=== PATIENT | female | born 1990 | race Caucasian/White ===

== ENCOUNTER 2016-11-15 07:10 | Inpatient (IN) | payer MEDICAID ==
[2016-11-09 12:31] LABS: ABSOLUTE BASOPHILS # (AUTO) 0.1 10^3/uL (0.0-0.2); ABSOLUTE EOSINOPHILS # (AUTO) 0.1 10^3/uL (0.0-0.6); ABSOLUTE LYMPHOCYTES (AUTO) 1.9 10^3/uL (0.5-4.7); ABSOLUTE MONOCYTES (AUTO) 0.6 10^3/uL (0.1-1.4); ABSOLUTE NEUT (AUTO) 6.5 10^3/uL (1.7-8.2); BASOPHILS % (AUTO) 0.6 % (0-2); EOSINOPHILS % (AUTO) 1.2 % (0-6); HEMATOCRIT 40.1 % (36.0-47.0); HEMOGLOBIN 13.1 g/dL (12.0-15.5); HGB HCT DIFFERENCE -0.8; LYMPHOCYTES % (AUTO) 20.3 % (13-45); MEAN CORPUSCULAR HEMOGLOBIN 30.2 pg (27.0-33.4); MEAN CORPUSCULAR HGB CONC 32.8 g/dL (32.0-36.0); MEAN CORPUSCULAR VOLUME 92 fl (80-97); MONOCYTES % (AUTO) 6.4 % (3-13); RED BLOOD COUNT 4.34 10^6/uL (3.72-5.28); RED CELL DISTRIBUTION WIDTH 12.9 % (11.5-14.0); SEGMENTED NEUTROPHILS % (AUTO) 71.5 % (42-78); WHITE BLOOD COUNT 9.1 10^3/uL (4.0-10.5)
[2016-11-09 12:39] LABS: AMORPHOUS SEDIMENT,URINE TRACE /HPF; APPEARANCE,URINE CLOUDY; BILIRUBIN,URINE NEGATIVE (NEGATIVE); GLUCOSE, URINE NEGATIVE (NEGATIVE); KETONES,URINE NEGATIVE (NEGATIVE); LEUKOCYTE ESTERASE,URINE NEGATIVE (NEGATIVE); NITRITE,URINE NEGATIVE (NEGATIVE); PROTEIN,URINE NEGATIVE (NEGATIVE); URINE SPECIFIC GRAVITY 1.012; UROBILINOGEN,URINE NEGATIVE mg/dL (<2.0)
[2016-11-09 12:50] LABS: URINE BARBITURATES SCREEN NEGATIVE; URINE METHADONE SCREEN NEGATIVE; URINE OPIATES LOW NEGATIVE; URINE PHENCYCLIDINE SCREEN NEGATIVE
[~2016-11-15 07:10] MED LIST: RINGERS SOLUTION,LACTATED 1,000 ML IV PRN
[2016-11-15] MEDS ORDERED: OXYTOCIN/NORMAL SALINE 20 UNIT/1,000 ML RTUINJ ONE ×2 (09:11→11:46)
[2016-11-15] MEDS ORDERED: FENTANYL CITRATE INJ/PF 100 MCG/2 ML AMPUL ONE (09:11)
[2016-11-15] MEDS ORDERED: MIDAZOLAM 2 MG/2 ML INJ ONE (09:11)
[2016-11-15] MEDS ORDERED: OXYTOCIN 10 UNIT/ML VIAL ONE (09:11)
[2016-11-15] MEDS ORDERED: ACETAMINOPHEN 100 ML IV ONE (09:12)
[2016-11-15] MEDS: CEFAZOLIN 2 GM/D5W RTU 2 GM/50 ML RTUPB IV SCH ×2 (09:15→09:30)
[2016-11-15] MEDS ORDERED: MORPHINE SULFATE 10 MG/ML INJ IV PRN (09:48)
[2016-11-15] MEDS ORDERED: DIPHENHYDRAMINE HCL 50 MG/ML VIAL IV PRN (09:48)
[2016-11-15] MEDS ORDERED: FENTANYL CITRATE INJ/PF 100 MCG/2 ML AMPUL IV PRN ×3 (09:48)
[2016-11-15] MEDS ORDERED: PROMETHAZINE HCL INJ 25 MG/1 ML VIAL IV PRN ×3 (09:48→10:33)
[2016-11-15] MEDS ORDERED: MEPERIDINE HCL/PF INJ 25 MG/1 ML DISP.SYRIN IV PRN (09:48)
[2016-11-15] MEDS ORDERED: OXYCODONE-ACETAMINOPHEN 5-325 MG TABLET PO PRN ×3 (09:48→10:33)
[2016-11-15] MEDS ORDERED: DIPH/PERTUSS(ACELL)/TETANUS VAC/PF 0.5 ML SYR (>=10YO) IM PRN (10:33)
[2016-11-15] MEDS ORDERED: RINGERS SOLUTION,LACTATED 1,000 ML IV PRN (10:33)
[2016-11-15] MEDS ORDERED: MEASLES,MUMPS&RUBELLA VACC/PF 0.5 ML VIAL SUBCUT PRN (10:33)
[2016-11-15] MEDS ORDERED: OXYTOCIN/NORMAL SALINE 1,000 ML IV PRN ×2 (10:33→11:49)
[2016-11-15] MEDS ORDERED: ACETAMINOPHEN 325 MG TABLET PO PRN (10:33)
[2016-11-15] MEDS ORDERED: HYDROMORPHONE HCL INJ/PF 2 MG/ML AMPULE IV PRN (10:33)
[2016-11-15] MEDS ORDERED: ACETAMINOPHEN 100 ML IV PRN (10:33)
--- NOTE | 2016-11-15 10:39 | Operative Report ---
Operative Report DATE OF SURGERY: 11/15/16 PREOPERATIVE DIAGNOSIS: Repeat to prevent risk of uterine rupture POSTOPERATIVE DIAGNOSIS: Same OPERATION: Repeat via low transverse uterine incision SURGEON: MESFIN RIVAS TRANSPORTATION OFFICER: OR staff ANESTHESIA: Spinal TISSUE REMOVED OR ALTERED: Placenta COMPLICATIONS: None ESTIMATED BLOOD LOSS: 250 INTRAOPERATIVE FINDINGS: Normal female pelvis PROCEDURE: Patient was taken to the OR and placed in supine position after her spinal anesthesia. She is prepared and draped in sterile fashion. Ware was placed for drainage of the bladder. Low transverse incision was made and carried down the level of the fascia. The fascial incision was made with knife and extended bilaterally with curved Squires scissors. The fascia was off the rectus muscles using sharp and blunt dissection. The rectus muscles are in the midline. The peritoneum was entered without incident. Bladder blade was placed in uterine segment was identified. A low transverse incision was made creating a bladder flap. Bladder blade was placed low transverse uterine incision was made with the knife and extended with fingertips. The baby was delivered with some fundal pressure. Mouth and nose were suctioned free. The cord is doubly clamped and cut. Baby is passed off to the homebirth midwife in attendance. The placenta was manually extracted with trailing membranes. The uterus was externalized wrapped in a moist lap sponge. Uterine contents wiped free. Uterus was closed with a running locking layer of 0 chromic suture using the second layer to imbricate the first completing a double layer closure of the uterus. The serosa was closed with a running 2-0 chromic stitch. The pelvis was irrigated and suctioned free of fluid the uterus was replaced in the abdomen. The abdominal wall peritoneum was closed with running 2-0 chromic stitch. Fascia was closed with a running 0 Vicryl in 2 segments. Aubrey's layer was brought together with 0 plain gut stitch and the skin was closed with running subcuticular 4-0 undyed Vicryl stitch. The wound was dressed mother and baby did well.
[2016-11-15] MEDS ORDERED: KETOROLAC TROMETHAMINE 60 MG/2 ML SDV ONE (11:25)
[2016-11-15] MEDS ORDERED: ONDANSETRON HCL INJ/PF 4 MG/2 ML SDV ONE (11:25)
[2016-11-15] MEDS ORDERED: MISOPROSTOL 0.2 MG TABLET ONE (11:46)
[2016-11-15] MEDS ORDERED: MISOPROSTOL 0.2 MG TABLET PR ONE (11:48)
[2016-11-15] MEDS ORDERED: KETOROLAC TROMETHAMINE INJ/PF 30 MG/1 ML SDV IV SCH (14:00)
[2016-11-15] MEDS: OXYCODONE-ACETAMINOPHEN 5-325 MG TABLET PO PRN ×2 (15:10→19:42)
[2016-11-15] MEDS: DOCUSATE SODIUM 100 MG CAPSULE PO SCH (17:50)
[2016-11-15] MEDS: KETOROLAC TROMETHAMINE INJ/PF 30 MG/1 ML SDV IV SCH (17:51)
[2016-11-15] MEDS ORDERED: NICOTINE 14 MG/24 HR PATCH.TD24 TD ONE (23:45)
[2016-11-16] MEDS: KETOROLAC TROMETHAMINE INJ/PF 30 MG/1 ML SDV IV SCH (01:25)
[2016-11-16] MEDS: OXYCODONE-ACETAMINOPHEN 5-325 MG TABLET PO PRN ×3 (03:31→20:14)
[2016-11-16 06:57] LABS: HEMATOCRIT 28.6 % (36.0-47.0); HGB HCT DIFFERENCE 1.4; MEAN CORPUSCULAR HEMOGLOBIN 31.7 pg (27.0-33.4); MEAN CORPUSCULAR HGB CONC 35.1 g/dL (32.0-36.0); MEAN CORPUSCULAR VOLUME 90 fl (80-97); RED BLOOD COUNT 3.16 10^6/uL (3.72-5.28); RED CELL DISTRIBUTION WIDTH 12.8 % (11.5-14.0); WHITE BLOOD COUNT 10.1 10^3/uL (4.0-10.5)
[2016-11-16] MEDS: DOCUSATE SODIUM 100 MG CAPSULE PO SCH ×2 (09:41→18:09)
[2016-11-16] MEDS: PRENATAL VITAMIN W-O CA NO5/FE FUMARATE/FA CAPSULE PO SCH (09:41)
[2016-11-16] MEDS ORDERED: FAMOTIDINE 20 MG TABLET PO ONE (10:45)
[2016-11-16] MEDS: NICOTINE 14 MG/24 HR PATCH.TD24 TD SCH (10:46)
--- NOTE | 2016-11-16 11:20 | PDOC PROGRESS REPORT ---
Subjective-OB Subjective: Post Delivery Day: 26 year old. Denies any needs at this time. Pt doing well, no concerns, sleeping. Pt family at bedside, reports she is ambulatory, passing flatus and voiding without difficulty. Physical Exam (OB) Vital Signs: Temp Pulse Resp BP Pulse Ox 98.6 F 85 18 121/65 100 11/16/16 07:57 11/16/16 07:57 11/16/16 07:57 11/16/16 07:57 11/16/16 07:57 Intake & Output 11/15/16 11/16/16 11/17/16 06:59 06:59 06:59 Intake Total 53764 Output Total 1500 Balance 54244 - Dressing Removed: Yes Incision: Dressing Closure Type: opsite - Lochia Lochia Amount: Scant < 10 ml Lochia Color: Rubra/Red - Abdomen Description: Tender, Soft Hernia Present: No Fundal Description: Firm, Midline Fundal Height: u/u - u/2 Objective-Diagnostic Laboratory: 11/16/16 06:39 11/16/16 06:39 WBC 10.1 RBC 3.16 L Hgb 10.0 L Hct 28.6 L MCV 90 MCH 31.7 MCHC 35.1 RDW 12.8 Plt Count 185 Assessment and Plan(PN) - Assessment and Plan (1) Status post repeat low transverse section Is this a current diagnosis for this admission?: Yes - Time Spent with Patient Time with patient: Less than 15 minutes Medications reviewed and adjusted accordingly: Yes - Disposition Anticipated Discharge: Home Within: within 24 hours
[2016-11-16] MEDS: IBUPROFEN 800 MG TABLET PO SCH ×3 (11:45→23:07)
[2016-11-16] MEDS: SIMETHICONE 80 MG TAB.CHEW PO PRN (15:08)
[2016-11-16] MEDS: FAMOTIDINE 20 MG TABLET PO SCH (21:52)
[2016-11-17] MEDS: OXYCODONE-ACETAMINOPHEN 5-325 MG TABLET PO PRN ×3 (02:02→14:11)
[2016-11-17] MEDS: IBUPROFEN 800 MG TABLET PO SCH ×2 (05:06→12:11)
[2016-11-17] MEDS: SIMETHICONE 80 MG TAB.CHEW PO PRN (08:46)
--- NOTE | 2016-11-17 08:56 | PDOC DISCHARGE SUMMARY ---
Final Diagnosis Discharge Date: 11/17/16 - Final Diagnosis (1) Acute blood loss anemia Is this a current diagnosis for this admission?: Yes (2) Status post repeat low transverse section Is this a current diagnosis for this admission?: Yes Discharge Data - Discharge Medication Home Medications: No Home Medications 09/21/16 Gestational Age: 39.6 Reason(s) for Admission: Ceasarean Section-Repeat Procedures: NST Intrapartum Procedure(s): : Low Cervical, Transverse - Data Baby 1 Male at 1 minute: 8 at 5 minutes: 9 Weight: 2236 kg Home with Mother: Yes Complications: No - Diagnosis Test Laboratory: Temp Pulse Resp BP Pulse Ox 97.5 F 82 18 110/59 L 100 11/17/16 07:49 11/17/16 07:49 11/17/16 07:49 11/17/16 07:49 11/17/16 07:49 11/09/16 11/09/16 11/16/16 11:45 11:56 06:39 RBC 4.34 3.16 L Hgb 13.1 10.0 L Hct 40.1 28.6 L Urine Opiates Screen NEGATIVE - Discharge information/Instructions Discharge Activity: Balance Activity w/Rest, No Driving, No Lifting Over 10 Pounds, Pelvic Rest, No tub bath Discharge Diet: Regular Disposition: HOME, SELF-CARE Follow up with: [facility] in: 1, Weeks
[2016-11-17] MEDS: DOCUSATE SODIUM 100 MG CAPSULE PO SCH (09:50)
[2016-11-17] MEDS: FAMOTIDINE 20 MG TABLET PO SCH (09:50)
[2016-11-17] MEDS: PRENATAL VITAMIN W-O CA NO5/FE FUMARATE/FA CAPSULE PO SCH (09:50)
[2016-11-17] MEDS ORDERED: MEDROXYPROGESTERONE ACET INJ 150 MG/1 ML VIAL IM PRN (10:00)
[2016-11-17] MEDS: NICOTINE 14 MG/24 HR PATCH.TD24 TD SCH (10:23)
[2016-11-17 12:02] VITALS: BP 122/66
== END 2016-11-17 16:40 | disposition home or self-care (01) | DRG 765 ==
LOC: 2S 07:10
PROVIDERS: ADMIT Obstetrics & Gynecology; ATTEND Obstetrics & Gynecology
PROC: 4A1HXCZ Monitoring of Products of Conception, Cardiac Rate, External Approach (ICD-10-PCS; 2016-11-15)
PROC: 10D00Z1 Extraction of Products of Conception, Low, Open Approach (ICD-10-PCS; principal; 2016-11-15 09:30)
DX: O99.344 Other mental disorders complicating childbirth (principal); D62 Acute posthemorrhagic anemia; O34.211 Maternal care for low transverse scar from previous cesarean delivery; F31.9 Bipolar disorder, unspecified; O99.334 Smoking (tobacco) complicating childbirth; F17.210 Nicotine dependence, cigarettes, uncomplicated; O99.02 Anemia complicating childbirth; Z3A.39 39 weeks gestation of pregnancy; Z37.0 Single live birth
CPT/HCPCS: 1961; 36415; 80307; 81001; 85025; 85027; 86850; 86900; 86901; 94799; J0131; J0690; J1050; J1170; J1885; J2250; J2405; J2590; J3010; J7120

== ENCOUNTER 2018-08-24 16:19 | Emergency (ER) | payer MEDICAID ==
[2018-08-24 16:23] VITALS: BP 123/76
--- NOTE | 2018-08-24 16:52 | ER Document Report ---
ED Medical Screen (RME) - General Chief Complaint: Vag Bleeding, +preg <12wks Stated Complaint: ABNORMAL BLEEDING Time Seen by Provider: 08/24/18 16:46 Notes: 27-year-old female patient who is blood type a positive, LMP 07/22/2018, positive test at the [facility] last week. She reports onset this morning of bleeding without clots. I have greeted and performed a rapid initial assessment of this patient. A comprehensive ED assessment and evaluation of the patient, analysis of test results and completion of the medical decision making process will be conducted by additional ED providers. TRAVEL OUTSIDE OF THE [place] IN LAST 30 DAYS: No - Related Data Allergies/Adverse Reactions: No Known Allergies Allergy (Verified 08/24/18 16:19) Past Medical History - General Last Menstrual Period: 07/22/2018 - Social History Frequency of alcohol use: None Drug Abuse: None Family history: DM, Hypertension - Past Medical History Cardiac Medical History: Denies: Hx Coronary Artery Disease, Hx Heart Attack, Hx Hypertension, Hx Pulmonary Embolism, Hx Heart Murmur Pulmonary Medical History: Denies: Hx Asthma, Hx Bronchitis, Hx COPD, Hx Pneumonia, Hx Sleep Apnea, Hx Tuberculosis Neurological Medical History: Denies: Hx Cerebrovascular Accident, Hx Seizures Endocrine Medical History: Denies: Hx Hyperthyroidism, Hx Hypothyroidism Renal/ Medical History: Denies: Hx Kidney Stones, Hx Ovarian Cysts, Hx Peritoneal Dialysis, Hx Pelvic Inflammatory Disease Malignancy Medical History: Denies: Hx Breast Cancer, Hx Cervical Cancer, Hx Ovarian Cancer GI Medical History: Denies: Hx Gastroesophageal Reflux Disease, Hx Hiatal Hernia , Hx Ulcer Musculoskeltal Medical History: Denies Hx Arthritis, Denies Hx Fibromyalgia Psychiatric Medical History: Reports: Hx Bipolar Disorder, Hx Depression, Hx Post Traumatic Stress Disorder Denies: Hx Schizophrenia Traumatic Medical History: Denies: Hx Fractures Infectious Medical History: Denies: Hx HIV Past Surgical History: Reports: Hx Section, Hx Cholecystectomy. Denies : Hx Pacemaker - Immunizations Immunizations up to date: Yes Hx Diphtheria, Pertussis, Tetanus Vaccination: Yes Physical Exam - Vital signs Vitals: Temp Pulse Resp BP Pulse Ox 97.9 F 92 14 123/76 98 08/24/18 16:22 08/24/18 16:22 08/24/18 16:22 08/24/18 16:22 08/24/18 16:22 Course - Vital Signs Vital signs: Temp Pulse Resp BP Pulse Ox 97.9 F 92 14 123/76 98 08/24/18 16:22 08/24/18 16:22 08/24/18 16:22 08/24/18 16:22 08/24/18 16:22
[2018-08-24 17:23] LABS: ABSOLUTE BASOPHILS # (AUTO) 0.1 10^3/uL (0.0-0.2); ABSOLUTE EOSINOPHILS # (AUTO) 0.3 10^3/uL (0.0-0.6); ABSOLUTE LYMPHOCYTES (AUTO) 2.1 10^3/uL (0.5-4.7); ABSOLUTE MONOCYTES (AUTO) 0.5 10^3/uL (0.1-1.4); ABSOLUTE NEUT (AUTO) 5.7 10^3/uL (1.7-8.2); BASOPHILS % (AUTO) 0.6 % (0-2); EOSINOPHILS % (AUTO) 3.3 % (0-6); HEMATOCRIT 40.1 % (36.0-47.0); HEMOGLOBIN 13.6 g/dL (12.0-15.5); LYMPHOCYTES % (AUTO) 24.2 % (13-45); MEAN CORPUSCULAR HEMOGLOBIN 29.4 pg (27.0-33.4); MEAN CORPUSCULAR HGB CONC 33.9 g/dL (32.0-36.0); MEAN CORPUSCULAR VOLUME 87 fl (80-97); PLATELET COUNT 293 10^3/uL (150-450); RED BLOOD COUNT 4.63 10^6/uL (3.72-5.28); RED CELL DISTRIBUTION WIDTH 13.9 % (11.5-14.0); SEGMENTED NEUTROPHILS % (AUTO) 65.9 % (42-78); TOTAL CELLS COUNTED % (AUTO) 100 %; WHITE BLOOD COUNT 8.6 10^3/uL (4.0-10.5)
--- NOTE | 2018-08-24 18:08 | RADIOLOGY REPORT (SQ) ---
EXAM DESCRIPTION: U/S OB TRANSVAGINAL W/O DOP COMPLETED DATE/TIME: 08/24/2018 5:47 pm REASON FOR STUDY: 5 weeks, vaginal bleeding this morning. COMPARISON: None. TECHNIQUE: Transvaginal static and realtime grayscale images acquired of the pelvis. Additional lela cted spectral and color Doppler images recorded. All images stored on PACs. bHCG: Not available. CLINICAL DATES: 4 weeks 5 days LIMITATIONS: None. FINDINGS: FETUS: Not visualized. Oval, slightly irregular cystic like structure within the uterus measuring 9 x 9 x 14 mm. No pole. 5 mm oval internal cystic like structure peripherally with low-level internal echoes which may represent an irregular yolk sac. SURVEY: Not applicable AMNIOTIC FLUID: Not applicable PLACENTA: Not applicable SUBCHORIONIC BLEED: Yes. SIZE OF BLEED: 1.4 x 0.9 x 1.5 cm UTERUS: No masses. No anomalies. Uterus measures 7.9 x 4.4 x 5.8 cm. CERVICAL LENGTH: 3.0 cm Closed. RIGHT ADNEXA: Normal ovary with normal vascular flow. No adnexal free fluid. No adnexal masses. 2.5 x 3.9 x 3.0 cm LEFT ADNEXA: Normal ovary with normal vascular flow. No adnexal free fluid. No adnexal masses. 2.4 x 1.8 x 3.0 cm. FREE FLUID: None. OTHER: No other significant finding. IMPRESSION: 1. Slightly irregular cystic structure within the uterus without a definitive yolk sac or pole. Differential considerations include early intrauterine , pseudo gestational sac or anembry onic . Recommend short-term sonographic follow-up and correlation with serial beta hCGs. 2. Large subchorionic hemorrhage. Trimester of : First - 0 to 13 weeks. TECHNICAL DOCUMENTATION: JOB ID: [id number] [employer]- All Rights Reserved rev Reading location - IP/workstation name: [email or web address]
--- NOTE | 2018-08-24 18:37 | ER Document Report ---
ED GI/ - General Chief Complaint: Vag Bleeding, +preg <12wks Stated Complaint: ABNORMAL BLEEDING Time Seen by Provider: 08/24/18 16:46 Notes: Patient says she that she is and having vaginal bleeding. Says her last menstrual cycle was July 20. Started bleeding this morning. Some mild lower pelvic cramping. No other complaints. Patient is 3, para 2, abortus 0. Denies fever. No other significant past medical history. TRAVEL OUTSIDE OF THE [place] IN LAST 30 DAYS: No - Related Data Allergies/Adverse Reactions: No Known Allergies Allergy (Verified 08/24/18 16:19) Past Medical History - General Last Menstrual Period: 07/22/2018 - Social History Smoking Status: Current Every Day Smoker Frequency of alcohol use: None Drug Abuse: None Family History: Reviewed & Not Pertinent, Other Patient has suicidal ideation: No Patient has homicidal ideation: Yes - Past Medical History Cardiac Medical History: GI Medical History: Musculoskeletal Medical History: Psychiatric Medical History: Reports: Hx Bipolar Disorder, Hx Depression, Hx Post Traumatic Stress Disorder Infectious Medical History: Past Surgical History: Reports: Hx Section, Hx Cholecystectomy - Immunizations Immunizations up to date: Yes Hx Diphtheria, Pertussis, Tetanus Vaccination: Yes Hx Pneumococcal Vaccination: 11/12/12 Review of Systems - Review of Systems Notes: REVIEW OF SYSTEMS: CONSTITUTIONAL : Denies fever. EENT: Denies eye, ear, nose or mouth or throat pain or other symptoms. CARDIOVASCULAR: Denies chest pain. RESPIRATORY: Denies cough, chest congestion, or shortness of breath. GASTROINTESTINAL: Denies abdominal pain or nausea, vomiting, or diarrhea. GENITOURINARY: Denies difficulty or painful urinating, urinary frequency, blood in urine. MUSCULOSKELETAL: Denies back or neck pain. Denies joint pain or swelling. SKIN: Denies rash or skin lesions. NEUROLOGICAL: Denies LOC or altered mental status. Denies headache. Denies sensory loss or motor deficits. ALL OTHER SYSTEMS REVIEWED AND NEGATIVE. Physical Exam - Vital signs Vitals: Temp Pulse Resp BP Pulse Ox 97.9 F 92 14 123/76 98 08/24/18 16:22 08/24/18 16:22 08/24/18 16:22 08/24/18 16:22 08/24/18 16:22 Interpretation: Normal - Notes Notes: PHYSICAL EXAMINATION: GENERAL: Well-appearing, in no acute distress. HEAD: Atraumatic, normocephalic. EYES: Pupils equal round and reactive to light, extraocular movements intact. ENT: oropharynx clear without exudates. Moist mucous membranes. NECK: Normal range of motion, supple. LUNGS: Breath sounds clear and equal bilaterally. HEART: Regular rate and rhythm without murmurs. ABDOMEN: Soft, nontender. No guarding or rebound. No masses. Pelvic deferred because patient getting ultrasound. BACK: No tenderness throughout entire back. EXTREMITIES: Normal range of motion without pain. NEUROLOGICAL: Normal speech, normal gait. Normal sensory, motor, and reflex exams. Awake, alert, and oriented x3. Cranial nerves normal. PSYCH: Normal mood, normal affect. SKIN: Warm, dry, no rashes. Course - Vital Signs Vital signs: Temp Pulse Resp BP Pulse Ox 97.9 F 92 14 123/76 98 08/24/18 16:22 08/24/18 16:22 08/24/18 16:22 08/24/18 16:22 08/24/18 16:22 - Laboratory Result Diagrams: 08/24/18 17:13 Laboratory results interpreted by me: 08/24/18 08/24/18 17:13 18:31 Beta HCG, Quant 27164.00 H Urine Blood LARGE H - Diagnostic Test Radiology reviewed: Image reviewed, Reports reviewed - Ultrasound shows a cystic structure in the uterus, but no yolk sac and no pole seen. Differential includes to early to see the structures versus a non- embryonic . Large subchorionic hemorrhage also seen. Discharge - Discharge Clinical Impression: Vaginal bleeding in , Threatened miscarriage in early Condition: Stable Disposition: HOME, SELF-CARE Additional Instructions: : You are . care is best started as early in as possible. If you're unsure about continuing this , you should discuss this with your physician or with washerette machine operator at [facility]. You should take only medications approved by your physician. Acetaminophen can safely be taken for minor pains. As a rule, medication for chronic conditions such as asthma or seizures can safely be continued. You should discuss with the physician every medicine you take. Any regular exercise program can be continued. Talk to your physician, however, before engaging in competitive or demanding sports. Alcohol, smoking, and "street drugs" are dangerous to your baby. Cocaine is especially dangerous. Don't use any illicit drugs! BLEEDING DURING EARLY : You have been evaluated for passing blood while . While we take this symptom very seriously, most women with your degree of bleeding will go on to have a perfectly normal baby. At this time, there is no indication that a miscarriage will occur. (A miscarriage occurs when the fetus is abnormal. There is no medicine or treatment to prevent it.) A more serious cause of bleeding is tubal (or ectopic) . An ultrasound usually can show whether the is in the uterus or in the tube. Sometimes in early , no fetus is seen. In this case, careful follow-up, including repeat blood tests and repeat ultrasound, is necessary. Do not douche or have sex for at least a week, or until OK'd by the doctor. Don't use tampons. Call the doctor or return for re-examination if there is an increase in bleeding or cramping, extreme weakness, fainting, new abdominal pain, fever, or passage of tissue. THREATENED MISCARRIAGE: You have been evaluated for a possible miscarriage. At this time, there is no indication that a miscarriage will occur. Most women with your symptoms will go on to have a perfectly normal baby. However, careful observation will be necessary. A miscarriage occurs when the fetus is abnormal. There is no medicine or treatment for it. You should rest in bed until the symptoms have resolved. Do not douche or have sex for at least a week, or until OK'd by the doctor. Call the doctor or return for re-examination if there is an increase in bleeding or cramping, or passage of tissue. Your test is positive and your ultrasound showed a sac where a fetus could develop. However, we did not see a yolk sac or pole, both of which are seen in early . He could just be too early to see these structures and that they will appear over the next week or 2. Only time will tell. REPEAT BLOOD TEST: At this time, it is uncertain if you have a viable . During the first three months of , the hormone produced from the placenta will steadily rise, usually doubling in value every 2 - 3 days. In order to determine if your is viable and likely be succesful, a repeat of this blood test for the hormone is recommended in 2 - 3 days. An order for this test to be done as an outpatient is being provided. After you have this repeat test done, call your doctor or call us for the results. If the value of the test is increasing as would be expected in a normal , then your is likely to be ok. However, if the value of the test is declining, it will suggest something has happened with your and it will not likely be a successful . We recommend that you have a repeat blood test in about 3-4 days and a repeat ultrasound in about a week. Follow-up with your ROUTE SALES SPECIALIST doctor, Dr. Montejo, during this coming week for them to determine exactly when they would like to have you repeat your blood work and repeat your ultrasound. FOLLOW-UP CARE: If you have been referred to a physician for follow-up care, call the physician s office for an appointment as you were instructed or within the next two days. If you experience worsening or a significant change in your symptoms (very heavy bleeding with large clots of blood, passage of tissue, more severe abdominal / pelvic pain or cramping, feeling faint or severe weakness, fever, etc.), notify the physician immediately or return to the Emergency Department at any time for re-evaluation. OBSTETRIC-GYNECOLOGIC (OB-[facility] SAL[employer]) PHYSICIANS IN [place]: [facility] [address] [place] [address] [phone] Referrals: MESFIN MONTEJO MD [ACTIVE STAFF] - Follow up in 3-5 days
[2018-08-24 18:40] LABS: AMORPHOUS SEDIMENT,URINE TRACE /HPF; APPEARANCE,URINE CLOUDY; BILIRUBIN,URINE NEGATIVE (NEGATIVE); COLOR,URINE YELLOW; GLUCOSE, URINE NEGATIVE (NEGATIVE); KETONES,URINE NEGATIVE (NEGATIVE); LEUKOCYTE ESTERASE,URINE NEGATIVE (NEGATIVE); NITRITE,URINE NEGATIVE (NEGATIVE); PROTEIN,URINE NEGATIVE (NEGATIVE); URINE SPECIFIC GRAVITY 1.015; UROBILINOGEN,URINE NEGATIVE mg/dL (<2.0)
== END 2018-08-24 18:51 | disposition home or self-care (01) ==
LOC: ER 16:19
DX: O20.0 Threatened abortion (principal); O20.9 Hemorrhage in early pregnancy, unspecified; Z3A.01 Less than 8 weeks gestation of pregnancy; Z90.49 Acquired absence of other specified parts of digestive tract
CPT/HCPCS: 36415; 76817; 81001; 84702; 85025; 99284

== ENCOUNTER 2018-11-02 08:01 | Emergency (ER) | payer MEDICAID ==
[2018-11-02 08:07] VITALS: BP 105/66
--- NOTE | 2018-11-02 08:50 | ER Document Report ---
ED General - General Chief Complaint: Shoulder Pain Stated Complaint: SHOULDER AND NECK PAIN Time Seen by Provider: 11/02/18 08:21 Mode of Arrival: Ambulatory Information source: Patient Notes: 28-year-old female presents the emergency department with complaints of right- sided neck and shoulder pain. Patient states that she has been having the pain for the last 4 days. She states that she did go to urgent care and was diagnosed with strep throat. She was told that she likely has muscle strain in this area and to use Tylenol and heating pads. Patient states that she has been doing this with relief of symptoms. Patient is concerned because the pain keeps returning. Patient states that she is 15 weeks . She states that she is only been taking Tylenol because she is . She denies any fever, chills, abdominal pain, vaginal discharge, vaginal bleeding. TRAVEL OUTSIDE OF THE [place] IN LAST 30 DAYS: No - HPI Onset: Last week Onset/Duration: Sudden Quality of pain: Throbbing Severity: Mild Pain Level: Denies Associated symptoms: Sore throat Exacerbated by: Movement Relieved by: Other - Tylenol, heating pad Similar symptoms previously: Yes Recently seen / treated by doctor: Yes - Related Data Allergies/Adverse Reactions: No Known Allergies Allergy (Verified 11/02/18 08:02) Past Medical History - General Information source: Patient - Social History Smoking Status: Never Smoker Chew tobacco use (# tins/day): No Frequency of alcohol use: None Drug Abuse: None Family History: Reviewed & Not Pertinent, Other Patient has suicidal ideation: No Patient has homicidal ideation: No - Past Medical History Cardiac Medical History: Denies: Hx Coronary Artery Disease, Hx Heart Attack, Hx Hypertension, Hx Pulmonary Embolism, Hx Heart Murmur Pulmonary Medical History: Denies: Hx Asthma, Hx Bronchitis, Hx COPD, Hx Pneumonia, Hx Sleep Apnea, Hx Tuberculosis Neurological Medical History: Denies: Hx Cerebrovascular Accident, Hx Seizures Endocrine Medical History: Denies: Hx Hyperthyroidism, Hx Hypothyroidism Renal/ Medical History: Denies: Hx Kidney Stones, Hx Ovarian Cysts, Hx Peritoneal Dialysis, Hx Pelvic Inflammatory Disease Malignancy Medical History: Denies: Hx Breast Cancer, Hx Cervical Cancer, Hx Ovarian Cancer GI Medical History: Denies: Hx Gastroesophageal Reflux Disease, Hx Hiatal Hernia, Hx Ulcer Musculoskeletal Medical History: Denies Hx Arthritis, Denies Hx Fibromyalgia Psychiatric Medical History: Reports: Hx Bipolar Disorder, Hx Depression, Hx Post Traumatic Stress Disorder Denies: Hx Schizophrenia Traumatic Medical History: Denies: Hx Fractures Infectious Medical History: Denies: Hx HIV Past Surgical History: Reports: Hx Section, Hx Cholecystectomy. Denies: Hx Pacemaker - Immunizations Immunizations up to date: Yes Hx Diphtheria, Pertussis, Tetanus Vaccination: Yes Hx Pneumococcal Vaccination: 11/12/12 Review of Systems - Review of Systems Constitutional: No symptoms reported EENT: No symptoms reported Cardiovascular: No symptoms reported Respiratory: No symptoms reported Gastrointestinal: No symptoms reported Genitourinary: No symptoms reported Female Genitourinary: No symptoms reported Musculoskeletal: Muscle pain Skin: No symptoms reported Hematologic/Lymphatic: No symptoms reported Neurological/Psychological: No symptoms reported -: Yes All other systems reviewed and negative Physical Exam - Vital signs Vitals: Temp Pulse Resp BP Pulse Ox 97.9 F 93 20 105/66 99 11/02/18 08:06 11/02/18 08:06 11/02/18 08:06 11/02/18 08:06 11/02/18 08:06 - Notes Notes: PHYSICAL EXAMINATION: GENERAL: Well-appearing, well-nourished and in no acute distress. HEAD: Atraumatic, normocephalic. EYES: Pupils equal round and reactive to light, extraocular movements intact, conjunctiva are normal. ENT: Nares patent, oropharynx clear without exudates. Moist mucous membranes. NECK: Normal range of motion, supple without lymphadenopathy. Right trapezius muscle tenderness to palpation. No midline cervical spine tenderness. LUNGS: Breath sounds clear to auscultation bilaterally and equal. No wheezes rales or rhonchi. HEART: Regular rate and rhythm without murmurs ABDOMEN: Soft, nontender, nondistended abdomen. No guarding, no rebound. No masses appreciated. Female : deferred Musculoskeletal: Right trapezius muscle tenderness to palpation. Full range of motion of the right shoulder despite pain. NEUROLOGICAL: Cranial nerves grossly intact. Normal speech, normal gait. Normal sensory, motor exams PSYCH: Normal mood, normal affect. SKIN: Warm, Dry, normal turgor, no rashes or lesions noted. Course - Re-evaluation Re-evalutation: 11/02/18 08:49 Patient states that she is 15 weeks . She has been taking Tylenol and using a heating pad for her muscle strain. She states that it is helping but the pain continues to return. Physical exam is remarkable for tenderness to palpation to the upper right trapezius muscle. Patient has full range of motion of the right shoulder. No bony tenderness to palpation. I instructed the patient to continue taking Tylenol as needed for her discomfort, to use a heating pad to help loosen the muscle, and to follow-up with her entry level account representative and PAPER PATTERN FOLDER this week. Patient is agreeable with the plan of care. - Vital Signs Vital signs: Temp Pulse Resp BP Pulse Ox 97.9 F 93 20 105/66 99 11/02/18 08:06 11/02/18 08:06 11/02/18 08:06 11/02/18 08:06 11/02/18 08:06 Discharge - Discharge Clinical Impression: Muscle strain Condition: Good Disposition: HOME, SELF-CARE Instructions: Muscle Strain ([facility]) Referrals: BAILEE ACOSTA MD [ACTIVE STAFF] - Follow up as needed MALKA SHERIFF MD [ACTIVE STAFF] - Follow up as needed
== END 2018-11-02 09:07 | disposition home or self-care (01) ==
LOC: ER 08:01
DX: O9A.212 Injury, poisoning and certain other consequences of external causes complicating pregnancy, second trimester (principal); T14.8XXA Other injury of unspecified body region, initial encounter; X58.XXXA Exposure to other specified factors, initial encounter; O99.89 Other specified diseases and conditions complicating pregnancy, childbirth and the puerperium; M25.511 Pain in right shoulder; M54.2 Cervicalgia; Z3A.15 15 weeks gestation of pregnancy
CPT/HCPCS: 99283

== ENCOUNTER → 2019-03-21 | Outpatient (CLI) | payer SELFPAY ==
--- NOTE | 2019-03-21 15:44 | RADIOLOGY REPORT (SQ) ---
EXAM DESCRIPTION: U/S OB 14+ TRNABD 1GES W/O DOP COMPLETED DATE/TIME: 03/21/2019 3:21 pm REASON FOR STUDY: ENCOUNTER FOR SUPERVISION OF VIVIAN EVANS PREGNACY, THIRD TRIMESTER Z34.[address] FOR SUPRVSN OF NORMAL , THIRD TRIM COMPARISON: None. TECHNIQUE: Static and Dynamic grayscale imaging performed of gravid uterus using transabdominal appr oach. Additional selected color Doppler and spectral images recorded. All stored on PACS. LIMITATIONS: None. FINDINGS: FETUSES SEEN:1 EGA: 34 weeks 6 days. Calculated using BPD,FL,HC,AC documented on images. No discrepancy with clinic al dates. VENKATA: 04/26/2019 EFW: 2,572 grams PERCENTILE: 41st KENYA: 10.4 PLACENTA: Posterior in location GRADE: II PRESENTATION: Cephalic. ANATOMY: HEART RATE: 139 beats per minute. FOUR CHAMBER HEART: Visualized. THREE VESSEL CORD: Yes. CORD INSERTION: Visualized. KIDNEYS AND BLADDER: Visualized. Appear normal. STOMACH: Visualized. Appears normal. SPINE: Normal as visualized. BRAIN AND LATERAL VENTRICLES: Poorly visualized due to age and lie. OTHER: No other significant finding. MATERNAL ADNEXA: Maternal ovaries not visualized. CERVICAL LENGTH: 4.2 cm. Closed. OTHER: No other significant finding. IMPRESSION: LIVING INTRAUTERINE . ESTIMATED GESTATIONAL AGE 34 WEEKS 6 DAYS. NO VISUALIZED ANOMALIES. Trimester of : Third trimester - 28 weeks to delivery. TECHNICAL DOCUMENTATION: JOB ID: [id number] [employer]- All Rights Reserved Reading location - IP/workstation name: [email or web address]
== END ==
LOC: RAD 14:38
PROVIDERS: ATTEND Midwife
DX: Z34.83 Encounter for supervision of other normal pregnancy, third trimester (principal)
CPT/HCPCS: 76805

== ENCOUNTER 2019-03-28 03:55 | Inpatient (IN) | payer SELFPAY ==
[2019-03-28] MEDS ORDERED: RINGERS SOLUTION,LACTATED 1,000 ML IV PRN (05:10)
[2019-03-28] MEDS ORDERED: CITRIC ACID/SODIUM CITRATE ORAL SOLN 15 ML UDCUP ONE (05:12)
[2019-03-28] MEDS ORDERED: CEFAZOLIN 2 GM/D5W RTU 2 GM/50 ML RTUPB IV ONE (05:12)
--- NOTE | 2019-03-28 05:18 | Admission Physical ---
Datetime Report Generated by CPN: 03/28/2019 05:18 CURRENT ADMISSION Chief Complaint: Uterine Contractions; Suspected Ruptured Membranes; Vaginal Bleeding Indication for Induction: Not Applicable Admit Impression : , Intrauterine ; Ruptured Membranes Admit Plan: Admit to Unit; Initiate Section Protocol ALLERGIES Medication Allergies: No Medication Allergies: No Known Allergies (11/02/2018) Latex: Unknown OBSTETRICAL HISTORY EDC: 04/28/2019 00:00 : 3 Para: 2 Term: 0 : 0 SAB: 0 IAB: 0 Ectopic: 0 Livin Cesareans: 2 VBACs: 0 Multiple Births: 0 Depression/PP Depression: Yes Current Procedures: Ultrasound; NST Obstetrical History Comments: 2012 C/S for arrest of dilation 2016 C/S repeat G3- current SEE RECORDS Alcohol: No Marijuana : No Cocaine: No Other Illicit Drugs: No Cigarettes: Smoker, Current Status Unknown. [id number] MEDICAL HISTORY Psychiatric Disorders: Yes Medical History Comments: depression, anxiety, bipolar PHYSICAL EXAM General: Normal HEENT: Normal Neurologic: Normal Thyroid: Normal Heart: Normal Lungs: Normal Breast: Deferred Back: Normal Abdomen: Normal Genitourinary Exam: Normal Extremities: Normal DTRs: Normal Pelvic Type: Adequate FETUS A EGA: 35.4 PLANS FOR LABOR AND DELIVERY Labor and Delivery: None Pain Management: Spinal Benefit of Breast Feed Discussed: Yes INFORMED CONSENT Signature: with User ID: [email or web address]
[2019-03-28] MEDS ORDERED: MIDAZOLAM 2 MG/2 ML INJ ONE (05:37)
[2019-03-28] MEDS ORDERED: OXYTOCIN 10 UNIT/ML VIAL ONE (05:37)
[2019-03-28] MEDS ORDERED: FENTANYL CITRATE INJ/PF 100 MCG/2 ML AMPUL ONE (05:37)
[2019-03-28] MEDS ORDERED: EPHEDRINE SULFATE INJ 50 MG/1 ML AMPULE ONE (05:37)
[2019-03-28 05:47] LABS: APPEARANCE,URINE CLEAR; BILIRUBIN,URINE NEGATIVE (NEGATIVE); COLOR,URINE STRAW; GLUCOSE, URINE NEGATIVE (NEGATIVE); KETONES,URINE NEGATIVE (NEGATIVE); LEUKOCYTE ESTERASE,URINE NEGATIVE (NEGATIVE); NITRITE,URINE NEGATIVE (NEGATIVE); PROTEIN,URINE NEGATIVE (NEGATIVE); URINE SPECIFIC GRAVITY 1.002; UROBILINOGEN,URINE NEGATIVE mg/dL (<2.0)
[2019-03-28 06:06] LABS: URINE AMPHETAMINES SCREEN NEGATIVE; URINE BARBITURATES SCREEN NEGATIVE; URINE BENZODIAZEPINES SCREEN NEGATIVE; URINE COCAINE SCREEN NEGATIVE; URINE MARIJUANA (THC) SCREEN NEGATIVE; URINE METHADONE SCREEN NEGATIVE; URINE PHENCYCLIDINE SCREEN NEGATIVE
[2019-03-28 06:11] LABS: ABSOLUTE EOSINOPHILS # (AUTO) 0.1 10^3/uL (0.0-0.6); ABSOLUTE LYMPHOCYTES (AUTO) 1.5 10^3/uL (0.5-4.7); ABSOLUTE MONOCYTES (AUTO) 0.6 10^3/uL (0.1-1.4); ABSOLUTE NEUT (AUTO) 5.6 10^3/uL (1.7-8.2); BASOPHILS % (AUTO) 0.4 % (0-2); EOSINOPHILS % (AUTO) 1.3 % (0-6); HEMATOCRIT 31.5 % (36.0-47.0); LYMPHOCYTES % (AUTO) 18.9 % (13-45); MEAN CORPUSCULAR HEMOGLOBIN 30.5 pg (27.0-33.4); MEAN CORPUSCULAR VOLUME 87 fl (80-97); MONOCYTES % (AUTO) 7.2 % (3-13); PLATELET COUNT 208 10^3/uL (150-450); RED BLOOD COUNT 3.61 10^6/uL (3.72-5.28); RED CELL DISTRIBUTION WIDTH 13.2 % (11.5-14.0); SEGMENTED NEUTROPHILS % (AUTO) 72.2 % (42-78); TOTAL CELLS COUNTED % (AUTO) 100 %; WHITE BLOOD COUNT 7.8 10^3/uL (4.0-10.5)
[2019-03-28] MEDS ORDERED: MEPERIDINE HCL/PF INJ 25 MG/1 ML DISP.SYRIN IV PRN (06:19)
[2019-03-28] MEDS ORDERED: ONDANSETRON HCL INJ/PF 4 MG/2 ML SDV IV PRN (06:19)
[2019-03-28] MEDS ORDERED: PROMETHAZINE HCL INJ 25 MG/1 ML VIAL IV PRN ×3 (06:19→06:29)
[2019-03-28] MEDS ORDERED: FENTANYL CITRATE INJ/PF 100 MCG/2 ML AMPUL IV PRN ×3 (06:19)
[2019-03-28] MEDS ORDERED: DIPHENHYDRAMINE HCL 50 MG/ML VIAL IV PRN (06:19)
[2019-03-28] MEDS ORDERED: MORPHINE SULFATE 10 MG/ML INJ IV PRN (06:19)
[2019-03-28] MEDS ORDERED: ACETAMINOPHEN 1,000 MG/100 ML RTUPB IV PRN (06:29)
[2019-03-28] MEDS ORDERED: MEASLES,MUMPS&RUBELLA VACC/PF 0.5 ML VIAL SUBCUT PRN (06:29)
[2019-03-28] MEDS ORDERED: OXYTOCIN/NORMAL SALINE 20 UNIT/1,000 ML RTUINJ IV PRN (06:29)
[2019-03-28] MEDS ORDERED: ACETAMINOPHEN 325 MG TABLET PO PRN (06:29)
[2019-03-28] MEDS ORDERED: DIPH/PERTUSS(ACELL)/TETANUS VAC/PF 0.5 ML SYR (>=10YO) IM PRN (06:29)
[2019-03-28] MEDS ORDERED: ACETAMINOPHEN 1,000 MG/100 ML RTUPB IV ONE (06:31)
[2019-03-28] MEDS ORDERED: OXYTOCIN/NORMAL SALINE 20 UNIT/1,000 ML RTUINJ ONE (08:07)
--- NOTE | 2019-03-28 08:54 | OPERATIVE REPORT E ---
Operative Report NAME: ELIESER CRUZ : 1990 AGE: 28Y DATE OF SURGERY: 03/28/2019 ROOM: LR200 PREOPERATIVE DIAGNOSIS: IUP at 35-4/7 weeks with prior section and rupture of membranes. POSTOPERATIVE DIAGNOSIS: IUP at 35-4/7 weeks with prior section and rupture of membranes. OPERATION: Repeat low-transverse with delivery of a viable female weighing 5 pounds, Apgars of 9 and 9. SURGEON: Vince HAHN M.D. ANESTHESIA: Spinal. ESTIMATED BLOOD LOSS: Less than 600 mL. TISSUE REMOVED: Placenta. PROCEDURE: The patient was placed in a supine position, rolled on her right side, prepped and draped in a sterile fashion. A Pfannenstiel incision was made. Incision was extended through the subcutaneous tissue and fascia with sharp dissection. The fascia was sharply divided and rectus muscles bluntly and sharply divided. The parietal peritoneum was entered with sharp dissection. The uterus was nicked in the midline and extended bilaterally. was then delivered through the abdominal incision. Nose and mouth were suctioned with a bulb syringe. Cord was clamped. was passed from the table. Placenta was manually extracted. The uterus was closed in two layers, the first a running stitch of 0 Vicryl and the second a Lembert stitch imbricating the first layer. A small area of bleeding was noted in the left portion of the uterine incision which was controlled with [id number] suture of 0 Vicryl. Hemostasis was then noted. Fascia was closed with 0 Vicryl. The skin was closed with subcu absorbable renee. She tolerated it well. Urine remained clear throughout the procedure. She was taken to recovery in good condition. Infant went to nursery with the father. DICTATING PHYSICIAN: Vince HAHN M.D. [id number] PHY#: [id number] ID: [id number] JOB#: [id number] ACCT: [id number] cc:Vince HAHN M.D. >
[2019-03-28] MEDS: MORPHINE SULFATE 10 MG/ML INJ IM PRN ×2 (09:40→15:30)
[2019-03-28] MEDS: PRENATAL VITAMIN W DHA CAPSULE PO SCH (09:41)
[2019-03-28] MEDS: DOCUSATE SODIUM 100 MG CAPSULE PO SCH ×2 (09:41→17:58)
--- NOTE | 2019-03-28 11:34 | Delivery Summary ---
Del Sum A-C Datetime Report Generated by CPN: 03/28/2019 11:34 DELIVERY PERSONNEL DELIVERY PERSONNEL: [id number] Delivery Doctor:: Marcelino Guy MD Anesthesiologist:: Giacomo Carroll MD RETREAD MOLD OPERATOR:: Annika Webster CRNA Labor and Delivery Nurse:: Roshni Keenan RN Ferryboat Captain:: Roshni Keenan RN Coke Loader:: Dr. Irving Baker Nurse Practitioner:: BROOKE Lopez Nursery Nurse:: Jeanie Russell RN Safety Tech/FLIGHT OPERATIONS COORDINATOR: ST Francy Safety Tech/FLIGHT OPERATIONS COORDINATOR: Diana Saenz ST MATERNAL INFORMATION Delivery Anesthesia: Spinal Medications After Delivery: Pitocin Drip 20 Units/1000ml NSS Maternal Complications: Precipitous Labor (<3hrs); Premature Rupture of Membranes LABOR SUMMARY EDC: 04/28/2019 00:00 No. Babies in Womb: 1 Attempted: No Labor Anesthesia: None LABOR INFORMATION Reason for Induction: Not Applicable Oxytocin: N/A Group B Beta Strep: unknown Antibiotics # of Doses: N/A Antibiotics Time of Last Dose: N/A Name of Antibiotic Given: N/A Steroids Given: None Reason Steroids Not Administered: Not Applicable MEMBRANES Membranes Rupture Method: Spontaneous Rupture of Membranes: 03/28/2019 03:30 Length of Rupture (hr): 2.58 Amniotic Fluid Color: Clear Amniotic Fluid Amount: Small Amniotic Fluid Odor: Normal STAGES OF LABOR Stage 3 hr: 0 Stage 3 min: 1 VAGINAL DELIVERY Episiotomy: None Laceration #1: None Laceration Extension #1: N/A Laceration Repair: Not Applicable Sponge Count Correct: N/A Sharps Count Correct: N/A CSECTION DELIVERY Primary Indication: Repeat Elective Secondary Indication: PROM CSection Urgency: Non-Scheduled CSection Incidence: Repeat Labor: No Labor Elective: Nonelective CSection Incision: Lower Uterine Transverse BABY A INFORMATION Delivery Date/Time: 03/28/2019 06:05 Method of Delivery: Born in Route : No : N/A Forceps: N/A Vacuum Extraction: N/A Shoulder Dystocia : No PRESENTATION/POSITION BABY A Presentation: Cephalic Cephalic Presentation: Vertex Breech Presentation: N/A PLACENTA INFORMATION BABY A Placenta Delivery Time : 03/28/2019 06:06 Placenta Method of Delivery: Manual Removal Placenta Status: Delivered SCORES BABY A Heart Rate 1 min: >100 bpm Resp Effort 1 min: Good Cry Reflex Irritability 1 min: Cough or Sneeze or Pulls Away Muscle Tone 1 min: Active Motion Color 1 min: Body [place], Extremities Blue Resuscitation Effort 1 min: Tactile Stimulation SCORE 1 MIN: 9 Heart Rate 5 min: >100 bpm Resp Effort 5 min: Good Cry Reflex Irritability 5 min: Cough or Sneeze or Pulls Away Muscle Tone 5 min: Active Motion Color 5 min: Body [place], Extremities Blue Resuscitation Effort 5 min: Tactile Stimulation SCORE 5 MIN: 9 INFANT INFORMATION BABY A Gestational Age at Delivery: 35.4 Gestational Status: Late - 34- 36.6 Weeks Outcome : Liveborn Condition : Stable Sex: Female IDENTIFICATION BABY A Verification Date/Time: 03/28/2019 06:46 ID Band Number: [id number] Mother's Name Verified: Yes Infant RN Verifying Infant: Luz Keenan RN/ Stefano Cardenas RN WEIGHT/LENGTH BABY A Infant Birthweight (gm): 2270 Weight (lb): 5 Infant Weight (oz): 0 Infant Length (in): 18.25 Length (cm): 46.36 CORD INFORMATION BABY A No. Cord Vessels: 3 Nuchal Cord : Around Neck x2, Tight Cord Blood Taken: Yes-For Storage (Mom's Blood type +) Suction: Mouth ASSESSMENT BABY A Infant Complications: None Physical Findings at Delivery: Within Normal Limits Infant Respirations: Appears Normal Skin to Skin: Yes Transferred To: NICU BABY B INFORMATION : N/A SIGNATURES Signature: with User ID: [email or web address]
[2019-03-28] MEDS: OXYCODONE-ACETAMINOPHEN 5-325 MG TABLET PO PRN ×2 (12:29→20:12)
[2019-03-28] MEDS: KETOROLAC TROMETHAMINE INJ/PF 30 MG/1 ML SDV IV SCH ×2 (13:28→22:37)
[2019-03-28] MEDS ORDERED: PHENYLEPHRINE HCL INJ/PF 10 MG/1 ML SDV ONE (13:50)
[2019-03-28] MEDS ORDERED: ONDANSETRON HCL INJ/PF 4 MG/2 ML SDV ONE (13:50)
[2019-03-28] MEDS ORDERED: METOCLOPRAMIDE HCL INJ/PF 10 MG/2 ML SDV ONE (13:50)
[2019-03-28] MEDS ORDERED: DEXAMETHASONE SOD PHOSPHATE INJ 4 MG/1 ML VIAL ONE (13:50)
[2019-03-28] MEDS ORDERED: KETOROLAC TROMETHAMINE 60 MG/2 ML SDV ONE (13:50)
[2019-03-29] MEDS: OXYCODONE-ACETAMINOPHEN 5-325 MG TABLET PO PRN ×4 (03:43→21:59)
[2019-03-29] MEDS: SIMETHICONE 80 MG TAB.CHEW PO PRN ×2 (03:43→22:03)
[2019-03-29] MEDS: KETOROLAC TROMETHAMINE INJ/PF 30 MG/1 ML SDV IV SCH ×3 (06:21→22:13)
[2019-03-29 06:27] LABS: HEMATOCRIT 22.3 % (36.0-47.0); MEAN CORPUSCULAR HEMOGLOBIN 30.5 pg (27.0-33.4); MEAN CORPUSCULAR HGB CONC 34.6 g/dL (32.0-36.0); MEAN CORPUSCULAR VOLUME 88 fl (80-97); PLATELET COUNT 163 10^3/uL (150-450); RED BLOOD COUNT 2.53 10^6/uL (3.72-5.28); RED CELL DISTRIBUTION WIDTH 13.3 % (11.5-14.0); WHITE BLOOD COUNT 7.1 10^3/uL (4.0-10.5)
[2019-03-29 06:39] LABS: HEMOGLOBIN 7.7 g/dL (12.0-15.5)
[2019-03-29] MEDS: DOCUSATE SODIUM 100 MG CAPSULE PO SCH ×2 (09:20→17:07)
[2019-03-29] MEDS: PRENATAL VITAMIN W DHA CAPSULE PO SCH (09:20)
--- NOTE | 2019-03-29 10:03 | PDOC PROGRESS REPORT ---
Subjective-OB Progress Note for:: 03/29/19 Subjective: reports bleeding slowing, pain controlled with current meds, denies needs, + passing gas Physical Exam (OB) Vital Signs: Temp Pulse Resp BP Pulse Ox 97.7 F 68 16 106/59 L 98 03/29/19 07:28 03/29/19 07:31 03/29/19 07:31 03/29/19 07:31 03/29/19 07:31 Intake & Output 03/28/19 03/29/19 03/30/19 06:59 06:59 06:59 Intake Total 1530 Output Total 1600 Balance -70 Weight 79.379 kg - Dressing Removed: No Incision: Dressing, Well Approximated - CDI Closure Type: pressure - Abdomen Description: Tender, Soft, Round Hernia Present: No Fundal Description: Firm, Midline Fundal Height: u/u - u/2 - Extremities Lower extremities: Nataliia's sign - neg Calf: Normal, Nontender Objective-Diagnostic Laboratory: 03/29/19 05:41 03/29/19 05:41 WBC 7.1 RBC 2.53 L Hgb 7.7 L D Hct 22.3 L MCV 88 MCH 30.5 MCHC 34.6 RDW 13.3 Plt Count 163 Assessment and Plan(PN) - Assessment and Plan (1) Status post repeat low transverse section Is this a current diagnosis for this admission?: Yes - Time Spent with Patient Time with patient: Less than 15 minutes Medications reviewed and adjusted accordingly: Yes - Disposition Anticipated Discharge: Home Within: within 48 hours
[2019-03-29] MEDS: IBUPROFEN 800 MG TABLET PO SCH ×3 (12:07→23:06)
[2019-03-30] MEDS: OXYCODONE-ACETAMINOPHEN 5-325 MG TABLET PO PRN (04:47)
[2019-03-30] MEDS: IBUPROFEN 800 MG TABLET PO SCH ×2 (05:28→12:52)
[2019-03-30] MEDS: KETOROLAC TROMETHAMINE INJ/PF 30 MG/1 ML SDV IV SCH (05:43)
[2019-03-30] MEDS: PRENATAL VITAMIN W DHA CAPSULE PO SCH (10:02)
[2019-03-30] MEDS: DOCUSATE SODIUM 100 MG CAPSULE PO SCH (10:02)
--- NOTE | 2019-03-30 10:41 | PDOC DISCHARGE SUMMARY ---
Final Diagnosis Discharge Date: 03/30/19 - Final Diagnosis (1) Status post repeat low transverse section Is this a current diagnosis for this admission?: Yes (2) hemorrhage Is this a current diagnosis for this admission?: Yes (3) Acute blood loss anemia Is this a current diagnosis for this admission?: Yes (4) Premature rupture of membranes Is this a current diagnosis for this admission?: Yes Discharge Data - Discharge Medication Prescriptions: Docusate Sodium [Colace 100 mg Capsule] 100 mg PO BID #60 capsule Ferrous Sulfate [Feosol 325 mg Tablet] 325 mg PO BID #60 tab Ibuprofen [Motrin 800 mg Tablet] 800 mg PO Q8HP PRN #60 tablet PRN Reason: Oxycodone HCl/Acetaminophen [Percocet 5-325 mg Tablet] 1 tab PO Q4HP PRN #30 tablet PRN Reason: Home Medications: Docusate Sodium [Colace 100 mg Capsule] 100 mg PO BID #60 capsule 03/30/19 Ferrous Sulfate [Feosol 325 mg Tablet] 325 mg PO BID #60 tab 03/30/19 Ibuprofen [Motrin 800 mg Tablet] 800 mg PO Q8HP PRN #60 tablet 03/30/19 Oxycodone HCl/Acetaminophen [Percocet 5-325 mg Tablet] 1 tab PO Q4HP PRN #30 tablet 03/30/19 Reason(s) for Admission: Ceasarean Section-Repeat Procedures: NST Intrapartum Procedure(s): : Low Cervical, Transverse - Diagnosis Test Laboratory: Temp Pulse Resp BP Pulse Ox 97.3 F 79 20 110/52 L 100 03/30/19 08:11 03/30/19 08:11 03/30/19 07:30 03/30/19 08:11 03/30/19 08:11 03/28/19 03/28/19 03/29/19 05:26 05:44 05:41 RBC 3.61 L 2.53 L Hgb 11.0 L 7.7 L D Hct 31.5 L 22.3 L Urine Opiates Screen NEGATIVE - Discharge information/Instructions Discharge Activity: Balance Activity w/Rest, Pelvic Rest, No tub bath Discharge Diet: Regular Disposition: HOME, SELF-CARE Follow up with: [facility] in: 1, Weeks
[2019-03-30 12:34] VITALS: BP 102/58
== END 2019-03-30 14:40 | disposition home or self-care (01) | DRG 788 ==
LOC: LC 03:55 → LR 05:11 → 2N 09:03
PROVIDERS: ADMIT Obstetrics & Gynecology Gynecology; ATTEND Obstetrics & Gynecology Gynecology
PROC: 10D00Z1 Extraction of Products of Conception, Low, Open Approach (ICD-10-PCS; principal; 2019-03-28)
PROC: 3E0234Z Introduction of Serum, Toxoid and Vaccine into Muscle, Percutaneous Approach (ICD-10-PCS; 2019-03-28)
DX: O34.211 Maternal care for low transverse scar from previous cesarean delivery (principal); O42.913 Preterm premature rupture of membranes, unspecified as to length of time between rupture and onset of labor, third trimester; N85.8 Other specified noninflammatory disorders of uterus; Z3A.35 35 weeks gestation of pregnancy; Z37.0 Single live birth; O90.81 Anemia of the puerperium; O69.1XX0 Labor and delivery complicated by cord around neck, with compression, not applicable or unspecified; Z23 Encounter for immunization
CPT/HCPCS: 1961; 36415; 80307; 81005; 84112; 85025; 85027; 86592; 86850; 86900; 86901; 90707; 94760; 94799; J0131; J0690; J1100; J1885; J2250; J2270; J2370; J2405; J2590; J2765; J3010; J3490; J7120; Q0114

== ENCOUNTER 2019-06-29 03:48 | Emergency (ER) | payer MEDICAID ==
[2019-06-29] MEDS ORDERED: MORPHINE SULFATE 10 MG/ML INJ IV ONE (04:53)
[2019-06-29] MEDS ORDERED: ONDANSETRON HCL INJ/PF 4 MG/2 ML SDV IV ONE (04:53)
[2019-06-29 05:37] LABS: ABSOLUTE LYMPHOCYTES (AUTO) 1.3 10^3/uL (0.5-4.7); ABSOLUTE MONOCYTES (AUTO) 0.6 10^3/uL (0.1-1.4); ABSOLUTE NEUT (AUTO) 4.8 10^3/uL (1.7-8.2); BASOPHILS % (AUTO) 0.5 % (0-2); EOSINOPHILS % (AUTO) 0.2 % (0-6); HEMATOCRIT 33.1 % (36.0-47.0); HEMOGLOBIN 11.2 g/dL (12.0-15.5); LYMPHOCYTES % (AUTO) 18.9 % (13-45); MEAN CORPUSCULAR HEMOGLOBIN 26.5 pg (27.0-33.4); MEAN CORPUSCULAR HGB CONC 33.8 g/dL (32.0-36.0); MEAN CORPUSCULAR VOLUME 78 fl (80-97); MONOCYTES % (AUTO) 9.5 % (3-13); PLATELET COUNT 206 10^3/uL (150-450); RED BLOOD COUNT 4.22 10^6/uL (3.72-5.28); RED CELL DISTRIBUTION WIDTH 15.7 % (11.5-14.0); SEGMENTED NEUTROPHILS % (AUTO) 70.9 % (42-78); TOTAL CELLS COUNTED % (AUTO) 100 %; WHITE BLOOD COUNT 6.8 10^3/uL (4.0-10.5)
[2019-06-29 05:41] LABS: ALBUMIN 3.9 g/dL (3.5-5.0); ALKALINE PHOSPHATASE 112 U/L (38-126); ANION GAP 8 (5-19); ASPARTATE AMINO TRANSFERASE 45 U/L (14-36); BILIRUBIN,DIRECT 0.1 mg/dL (0.0-0.4); BILIRUBIN,TOTAL 0.4 mg/dL (0.2-1.3); BLOOD UREA NITROGEN 8 mg/dL (7-20); CARBON DIOXIDE 26 mmol/L (22-30); CHLORIDE 99 mmol/L (98-107); GLUCOSE 97 mg/dL (75-110); POTASSIUM 3.7 mmol/L (3.6-5.0); TOTAL PROTEIN 6.7 g/dL (6.3-8.2)
[2019-06-29 05:51] LABS: APPEARANCE,URINE SLIGHTLY-CLOUDY; BILIRUBIN,URINE NEGATIVE (NEGATIVE); COLOR,URINE YELLOW; GLUCOSE, URINE NEGATIVE (NEGATIVE); KETONES,URINE NEGATIVE (NEGATIVE); LEUKOCYTE ESTERASE,URINE NEGATIVE (NEGATIVE); NITRITE,URINE NEGATIVE (NEGATIVE); PROTEIN,URINE NEGATIVE (NEGATIVE); URINE SPECIFIC GRAVITY 1.016; UROBILINOGEN,URINE NEGATIVE mg/dL (<2.0)
[2019-06-29] MEDS ORDERED: KETOROLAC TROMETHAMINE INJ/PF 30 MG/1 ML SDV IV ONE (05:56)
--- NOTE | 2019-06-29 06:25 | ER Document Report ---
ED GI/ - General Chief Complaint: Upper Abdominal Pain Stated Complaint: RIGHT SIDE PAIN Time Seen by Provider: 06/29/19 04:45 Primary Care Provider: ESSIE CALDERON CNM [NO LOCAL MD] - Follow up as needed Mode of Arrival: Ambulatory Information source: Patient Notes: Chief complaint: abdominal pain: History of complain:( obtained from----patient) 28 years old female 3 months presents today with abdominal pain diffusely over upper abdomen, fever cough on and off. Going on for the last 3 days. Status post cholecystectomy. Denies any diarrhea or constipation. Denies any dysuria frequency or urgency. Nonproductive cough Onset: As above Duration: Gradual Severity: Moderate Quality: Sharp Context: Unknown Exacerbating factor and relieving factors: Coughing REVIEW OF SYSTEMS: CONSTITUTIONAL : Denies fever, chills, or sweats. Denies recent illness. EENT: Denies eye, ear, throat, or mouth pain or symptoms. Denies nasal or sinus congestion or discharge. Denies throat, tongue, or mouth swelling or difficulty swallowing. CARDIOVASCULAR: Lower chest pain on coughing. Denies palpitations or racing or irregular heart beat. Denies ankle edema. RESPIRATORY: . Denies shortness of breath, difficulty breathing, or wheezing. GASTROINTESTINAL: Denies distention. Denies nausea, vomiting, or diarrhea. Denies blood in vomitus, stools, or per rectum. Denies black, tarry stools. Denies constipation. GENITOURINARY: Denies difficulty urinating, painful urination, burning, frequency, blood in urine, or discharge. FEMALE GENITOURINARY: Denies vaginal bleeding, heavy or abnormal periods, irregular periods. Denies vaginal discharge or odor. MUSCULOSKELETAL: Denies back or neck pain or stiffness. Denies joint pain or swelling. SKIN: Denies rash, lesions or sores. HEMATOLOGIC : Denies easy bruising or bleeding. LYMPHATIC: Denies swollen, enlarged glands. NEUROLOGICAL: Denies confusion or altered mental status. Denies passing out or loss of consciousness. Denies dizziness or lightheadedness. Denies headache. Denies weakness or paralysis or loss of use of either side. Denies problems with gait or speech. Denies sensory loss, numbness, or tingling. Denies seizures. PSYCHIATRIC: Denies anxiety or stress. Denies depression, suicidal ideation, or homicidal ideation. ALL OTHER SYSTEMS REVIEWED AND NEGATIVE. PHYSICAL EXAMINATION: GENERAL: Well-appearing, well-nourished and in mild to moderate acute distress. HEAD: Atraumatic, normocephalic. EYES: Pupils equal round and reactive to light, extraocular movements intact, conjunctiva are normal. ENT: Nares patent, oropharynx clear without exudates. Moist mucous membranes. NECK: Normal range of motion, supple without lymphadenopathy LUNGS: Decreased breath sounds, no obvious wheezes or rales and equal. No wheezes rales or rhonchi. HEART: Regular rate and rhythm without murmurs ABDOMEN: Soft, diffusely tender over the upper abdomen no guarding or rebound tenderness. No guarding, no rebound. No masses appreciated. Female : deferred Musculoskeletal: Normal range of motion, no pitting or edema. No cyanosis. NEUROLOGICAL: Cranial nerves grossly intact. Normal speech, normal gait. Normal sensory, motor exams PSYCH: Normal mood, normal affect. SKIN: Warm, Dry, normal turgor, no rashes or lesions noted. Dictation was performed using [employer] voice recognition software TRAVEL OUTSIDE OF THE [place] IN LAST 30 DAYS: No - HPI Notes: 06/29/19 06:21 Dictated - Related Data Allergies/Adverse Reactions: No Known Allergies Allergy (Verified 11/02/18 08:02) Past Medical History - Social History Smoking Status: Current Every Day Smoker Frequency of alcohol use: Rare Drug Abuse: None Lives with: Family Family History: Reviewed & Not Pertinent, Other Patient has suicidal ideation: No Patient has homicidal ideation: No - Past Medical History Cardiac Medical History: Denies: Hx Coronary Artery Disease, Hx Heart Attack, Hx Hypertension, Hx Pulmonary Embolism, Hx Heart Murmur Pulmonary Medical History: Denies: Hx Asthma, Hx Bronchitis, Hx COPD, Hx Pneumonia, Hx Sleep Apnea, Hx Tuberculosis Neurological Medical History: Denies: Hx Cerebrovascular Accident, Hx Seizures Endocrine Medical History: Denies: Hx Hyperthyroidism, Hx Hypothyroidism Renal/ Medical History: Denies: Hx Kidney Stones, Hx Ovarian Cysts, Hx Peritoneal Dialysis, Hx Pelvic Inflammatory Disease Malignancy Medical History: Denies: Hx Breast Cancer, Hx Cervical Cancer, Hx Ovarian Cancer GI Medical History: Denies: Hx Gastroesophageal Reflux Disease, Hx Hiatal Hernia, Hx Ulcer Musculoskeletal Medical History: Denies Hx Arthritis, Denies Hx Fibromyalgia Psychiatric Medical History: Reports: Hx Bipolar Disorder, Hx Depression, Hx Post Traumatic Stress Disorder Denies: Hx Schizophrenia Traumatic Medical History: Denies: Hx Fractures Infectious Medical History: Denies: Hx HIV Past Surgical History: Reports: Hx Section, Hx Cholecystectomy. Denies: Hx Pacemaker - Immunizations Immunizations up to date: Yes Hx Diphtheria, Pertussis, Tetanus Vaccination: Yes Hx Pneumococcal Vaccination: 11/12/12 Review of Systems - Review of Systems Notes: Dictated Physical Exam - Vital signs Vitals: Temp Pulse Resp BP Pulse Ox 100.3 F 98 16 108/71 97 06/29/19 03:56 06/29/19 03:56 06/29/19 03:56 06/29/19 03:56 06/29/19 03:56 - Notes Notes: Dictated Course - Vital Signs Vital signs: Temp Pulse Resp BP Pulse Ox 100.3 F 98 16 108/71 97 06/29/19 03:56 06/29/19 03:56 06/29/19 03:56 06/29/19 03:56 06/29/19 03:56 - Laboratory Result Diagrams: 06/29/19 05:09 06/29/19 05:09 Laboratory results interpreted by me: 06/29/19 06/29/19 06/29/19 05:09 05:09 05:19 Hgb 11.2 L Hct 33.1 L MCV 78 L MCH 26.5 L RDW 15.7 H Sodium 132.6 L AST 45 H Urine Blood SMALL H - Diagnostic Test Radiology reviewed: Image reviewed - Chest view did not show any infiltration or effusions. Abdominal view shows large amount of fecal material. Discharge - Discharge Clinical Impression: Bronchitis, Constipation by delayed colonic transit Abdominal pain Qualifiers: Abdominal location: upper abdomen, unspecified Qualified Code(s): R10.10 - U pper abdominal pain, unspecified Condition: Fair Disposition: HOME, SELF-CARE Instructions: Abdominal Pain ([facility]), Constipation ([facility]), Bronchitis ([facility]) Prescriptions: Ketorolac Tromethamine [Toradol 10 mg Tablet] 10 mg PO Q6HP PRN #10 tablet PRN Reason: Albuterol Sulfate [Albuterol Sulfate Hfa] 8.5 gm IH Q4 #1 hfa.aer.ad Docusate Sodium [Colace] 100 mg PO DAILY #20 capsule Prednisone 10 mg PO DAILY 6 Days #1 tab.ds.pk Referrals: ESSIE CALDERON CNM [NO LOCAL MD] - Follow up as needed
[2019-06-29 06:41] VITALS: BP 107/54
--- NOTE | 2019-06-29 07:14 | RADIOLOGY REPORT (SQ) ---
EXAM DESCRIPTION: XR ABDOMEN SUPINE AND ERECT WITH CHEST (ABD ACUTE SERIES) COMPLETED DATE/TME: 06/29/2019 04:54 CLINICAL HISTORY: 28 years Female, Acute abdominal pain Comparison: 02/06/13 NUMBER OF VIEWS/TECHNIQUE: 3 LIMITATIONS: None. FINDINGS: Intestinal gas pattern is within normal limits. No suspicious calcification. Grossly intact skeletal structures. Small patchy left retrocardiac opacity..Right upper abdominal clips. IMPRESSION: Small left lower lobar pneumonia/atelectasis.
--- NOTE | 2019-06-29 07:24 | ER Document Report ---
Doctor's Note Notes: 06/29/19 07:23 Patient has already been discharged. Radiologist called stating that there is a small left lower lobe either pneumonia. I did review the patient's chart, patient was not started on antibiotics. I did attempt to call patient and both phone numbers and did leave a message. I printed a prescription for Augmentin and placed it with the charge nurse as well as a copy of the demographics and instructions for the charge nurse to get a hold of the patient that her medications can be started today.
== END 2019-06-29 06:41 | disposition home or self-care (01) ==
LOC: ER 03:48
DX: J40 Bronchitis, not specified as acute or chronic (principal); K59.01 Slow transit constipation; R10.10 Upper abdominal pain, unspecified; R50.9 Fever, unspecified; R05 Cough; Z90.49 Acquired absence of other specified parts of digestive tract; R07.9 Chest pain, unspecified; F17.200 Nicotine dependence, unspecified, uncomplicated
CPT/HCPCS: 99283; 96374; 96375; 36415; 83690; 85025; 81025; 80053; 81001; 74022; J1885; J2405

== ENCOUNTER → 2019-07-02 | Outpatient (CLI) | payer MEDICAID ==
--- NOTE | 2019-07-02 15:39 | RADIOLOGY REPORT (SQ) ---
EXAM DESCRIPTION: CT CHEST WITH COMPLETED DATE/TIME: 07/02/2019 2:42 pm REASON FOR STUDY: R09.1 PLEURISY R09.1 PLEURISY COMPARISON: Three-way abdomen films 06/29/2019 TECHNIQUE: CT scan of the chest performed using helical scanning technique with dynamic intravenous contrast injection. Images reviewed with lung, soft tissue and bone windows. Reconstructed coronal and sagittal MPR and MIP images reviewed. All images stored on PACS. All CT scanners at this facility use dose modulation, iterative reconstruction, and/or weight based d osing when appropriate to reduce radiation dose to as low as reasonably achievable (ALARA). [facility]: Dose Right [facility]: CareDose [facility]: Dose Right [facility]: Teradose 4D [facility]: SueEasy CONTRAST TYPE AND DOSE: contrast/concentration: Isovue 350.00 mg/ml; Total Contrast Delivered: 75.0 ml; Total Saline Delivered: 55.0 ml RENAL FUNCTION: None required. The patient is less than 50 years old. RADIATION DOSE: CT Rad equipment meets quality standard of care and radiation dose reduction techniq ues were employed. CTDIvol: 6.4 mGy. DLP: 255 mGy-cm. . LIMITATIONS: None. FINDINGS: LUNGS AND PLEURA: There is dense left lower lobe pneumonia without pleural effusion. Patchy pneumonia is present in the medial right upper lobe, and throughout the lingula. Airways are patent. No pleural effusions or pneumothorax. No HILAR AND MEDIASTINAL STRUCTURES: No identified masses or abnormal nodes. HEART AND VASCULAR STRUCTURES: No aneurysm or dissection. No gross evidence of central pulmonary emb iliana. No pericardial effusion. HARDWARE: None in the chest. UPPER ABDOMEN: Post cholecystectomy. There is mild splenomegaly, 14 cm in greatest diameter. THYROID AND OTHER SOFT TISSUES: No masses. No adenopathy. BONES: No significant finding. OTHER: No other significant finding. IMPRESSION: Left lower lobe pneumonia, progressive since chest films 06/29/2019. Patchy airspace disease in the bilateral upper lobes. TECHNICAL DOCUMENTATION: JOB ID: [id number] Quality ID # [id number]: Final reports with documentation of one or more dose reduction techniques (e.g., Au tomated exposure control, adjustment of the mA and/or kV according to patient size, use of iterative reconstruction technique) 2010 [employer]- All Rights Reserved Reading location - IP/workstation name: [email or web address]
== END ==
LOC: RAD 14:18
PROVIDERS: ATTEND Family Medicine
DX: J18.1 Lobar pneumonia, unspecified organism (principal); R09.1 Pleurisy
CPT/HCPCS: 71260

== ENCOUNTER 2019-09-25 10:04 | Day surgery (SDC) | payer MEDICAID ==
[2019-09-24 11:28] LABS: HEMATOCRIT 34.8 % (36.0-47.0); HEMOGLOBIN 11.8 g/dL (12.0-15.5); MEAN CORPUSCULAR HEMOGLOBIN 27.9 pg (27.0-33.4); MEAN CORPUSCULAR VOLUME 82 fl (80-97); PLATELET COUNT 301 10^3/uL (150-450); RED BLOOD COUNT 4.24 10^6/uL (3.72-5.28); RED CELL DISTRIBUTION WIDTH 14.1 % (11.5-14.0); WHITE BLOOD COUNT 7.8 10^3/uL (4.0-10.5)
[2019-09-24 11:32] LABS: APPEARANCE,URINE SLIGHTLY-CLOUDY; BILIRUBIN,URINE NEGATIVE (NEGATIVE); COLOR,URINE YELLOW; GLUCOSE, URINE NEGATIVE (NEGATIVE); KETONES,URINE NEGATIVE (NEGATIVE); LEUKOCYTE ESTERASE,URINE TRACE (NEGATIVE); NITRITE,URINE NEGATIVE (NEGATIVE); PROTEIN,URINE NEGATIVE (NEGATIVE); URINE SPECIFIC GRAVITY 1.018; UROBILINOGEN,URINE NEGATIVE mg/dL (<2.0)
[~2019-09-25 10:04] MED LIST changes: +LACTATED RINGERS 1000 ML IV PRN; +LIDOCAINE 0.5% INJ-PF (5 MG/ML) 50 ML SDV SUBCUT PRN; -RINGERS SOLUTION,LACTATED 1,000 ML IV PRN
[2019-09-25] MEDS ORDERED: MIDAZOLAM 2 MG/2 ML INJ ONE (10:07)
[2019-09-25] MEDS ORDERED: FENTANYL CITRATE INJ/PF 100 MCG/2 ML AMPUL ONE ×2 (10:07→14:20)
[2019-09-25] MEDS ORDERED: PROPOFOL INJ 200 MG/20 ML VIAL IV ONE (10:07)
[2019-09-25] MEDS ORDERED: KETOROLAC TROMETHAMINE 60 MG/2 ML SDV ONE (12:00)
[2019-09-25] MEDS ORDERED: SUCCINYLCHOLINE CHLORIDE INJ 200 MG/10 ML VIAL ONE (12:00)
[2019-09-25] MEDS ORDERED: ONDANSETRON HCL INJ/PF 4 MG/2 ML SDV ONE (12:00)
[2019-09-25] MEDS ORDERED: DEXAMETHASONE SOD PHOSPHATE INJ 4 MG/1 ML VIAL ONE (12:00)
[2019-09-25] MEDS ORDERED: ONDANSETRON HCL INJ/PF 4 MG/2 ML SDV IV PRN (12:28)
[2019-09-25] MEDS ORDERED: MEPERIDINE HCL/PF INJ 25 MG/1 ML DISP.SYRIN IV PRN (12:28)
[2019-09-25] MEDS ORDERED: FENTANYL CITRATE INJ/PF 100 MCG/2 ML AMPUL IV PRN ×3 (12:28)
[2019-09-25] MEDS ORDERED: PROMETHAZINE HCL INJ 25 MG/1 ML VIAL IV PRN (12:28)
[2019-09-25] MEDS ORDERED: DIPHENHYDRAMINE HCL 50 MG/ML VIAL IV PRN (12:28)
[2019-09-25] MEDS ORDERED: OXYCODONE-ACETAMINOPHEN 5-325 MG TABLET PO PRN ×2 (12:28)
[2019-09-25] MEDS ORDERED: MORPHINE SULFATE 10 MG/ML INJ IV PRN (12:28)
--- NOTE | 2019-09-25 14:09 | Operative Report ---
Operative Report DATE OF SURGERY: 09/25/19 PREOPERATIVE DIAGNOSIS: Undesired fertility POSTOPERATIVE DIAGNOSIS: Same OPERATION: Laparoscopic tubal cauterization SURGEON: YASSINE PULLIAM 1ST EPIC ANESTHESIA ANALYST: MARLA CASSIDY ANESTHESIA: GA COMPLICATIONS: None ESTIMATED BLOOD LOSS: 10 cc INTRAOPERATIVE FINDINGS: Normal uterus tubes and ovaries PROCEDURE: Patient was taken to the operating room prepared and draped in normal sterile fashion in dorsolithotomy position. Under sterile conditions and in and out cath was performed of approximately 30 cc of clear urine. A sterile speculum was then placed into the vagina the cervix was grasped with a single-tooth tenaculum on the anterior lip. A Hulka clamp was placed to the cervix for uterine manipulation without difficulty. The tenaculum and speculum were then removed. Change in attention was turned to the upper portion of the case where the umbilical skin incision was made. A varies needle was introduced through this incision and the abdomen was inflated with approximately 2 L of CO2 gas. Needle was removed and a 5 mm port was placed through the incision. The camera was introduced and the patient was placed in Trendelenburg with the above findings noted. Another 5 mm port was placed in the left lower quadrant. A blunt probe was introduced through this port and the bowel was swept away. A Kleppinger was then introduced through that port and beginning with the left fallopian tube the left fallopian tube was cauterized with approximately 3-1/2 cm. The occlusion was felt to be more than adequate. Repeated on the right fallopian tube without difficulty. Then removed and the abdomen was deflated through the umbilical port. Port sites were closed with 4-0 Vicryl. To recovery stable condition sponge lap and needle counts were correct x2..
[2019-09-25 16:55] VITALS: BP 111/62
== END 2019-09-25 16:20 | disposition home or self-care (01) ==
LOC: OROUT 10:04
PROVIDERS: ATTEND Obstetrics & Gynecology
DX: Z30.2 Encounter for sterilization (principal); Z87.891 Personal history of nicotine dependence
CPT/HCPCS: 36415; 85027; 81005; 81025; 58670; J2250; J1100; J1885; J3010; J0330; J2405; J2704; 851

== ENCOUNTER 2020-04-05 23:58 | Emergency (ER) | payer MEDICAID ==
[2020-04-06 00:10] VITALS: BP 130/93
== END 2020-04-06 02:48 | disposition left against medical advice (07) ==
LOC: ER 23:58
DX: Z53.21 Procedure and treatment not carried out due to patient leaving prior to being seen by health care provider (principal)